=== PATIENT | male | born 1965 | race Two or more races ===

== ENCOUNTER → 2017-04-28 | Outpatient (CLI) | payer OTHER ==
[~2017-04-28] MED LIST: ALLO300 PO; AMLO-512 PO; ASPI81 PO; ATEN-187 PO; COLC0.6T69 PO; FAMO20 PO; LISI-662 PO; NAPR500T6 PO; NITR.4 SL; OMEP20 PO; PARO20TA24 PO; PERCT PO; PRAV10TA39 PO; PREG75 PO; SPIR25 PO
== END | disposition home or self-care (01) ==
LOC: RADPV 14:23
PROVIDERS: ATTEND Internal Medicine Cardiovascular Disease
DX: I51.7 Cardiomegaly (principal); I70.0 Atherosclerosis of aorta; M47.814 Spondylosis without myelopathy or radiculopathy, thoracic region
CPT/HCPCS: 71020

== ENCOUNTER → 2018-11-28 | Outpatient (CLI) | payer OTHER ==
[~2018-11-28] MED LIST changes: +COLC0.6T67 PO; -COLC0.6T69 PO
== END | disposition home or self-care (01) ==
LOC: RADPV 09:31
PROVIDERS: ATTEND Internal Medicine Nephrology
DX: I13.0 Hypertensive heart and chronic kidney disease with heart failure and stage 1 through stage 4 chronic kidney disease, or unspecified chronic kidney disease (principal); N18.3 Chronic kidney disease, stage 3 (moderate); I50.22 Chronic systolic (congestive) heart failure; M72.2 Plantar fascial fibromatosis
CPT/HCPCS: 76770

== ENCOUNTER 2020-11-18 11:46 | Emergency (ER) | payer OTHER ==
[~2020-11-18] VITALS: Ht 180.3 cm; Wt 145.4 kg
[~2020-11-18 11:46] MED LIST changes: +ALLO-45 PO; -ALLO300 PO; +AMLO-258 PO; -AMLO-512 PO; +ASPI-728 PO; -ASPI81 PO; -COLC0.6T67 PO; +COLC0.6T73 PO; -NITR.4 SL; +NITR0.4T52 SL; +PARO-38 PO; -PARO20TA24 PO
[2020-11-18 11:54] VITALS: BP 160/100
[2020-11-18 13:09] LABS: BASOPHILS % (AUTO) 0.9 % (0.0-2.0); EOSINOPHILS % (AUTO) 2.6 % (1.0-6.0); HEMATOCRIT 39.7 % (41-53); HEMOGLOBIN 12.9 g/dL (13.5-17.5); LYMPHOCYTES # (AUTO) 1.4 K/uL (1.0-4.8); LYMPHOCYTES % (AUTO) 20.3 % (22.0-44.0); MEAN CORPUSCULAR HEMOGLOBIN 29.7 pg (26.0-34.0); MEAN CORPUSCULAR HGB CONC 32.5 G/dL (31.0-37.0); MEAN CORPUSCULAR VOLUME 92 fL (80-100); MONOCYTES # (AUTO) 0.4 K/uL (0.1-1.0); NEUTROPHILS # (AUTO) 4.8 K/uL (1.8-7.7); NEUTROPHILS % (AUTO) 70.2 % (40.0-70.0); PLATELET COUNT (AUTO) 266 K/uL (150-450); RED BLOOD CELL COUNT(AUTO) 4.34 MIL/uL (4.50-5.90); RED CELL DISTRIBUTION WIDTH 14.6 % (11.5-14.5)
[2020-11-18 13:17] LABS: CALCIUM, TOTAL 8.4 mg/dL (8.8-10.5); CREATININE 3.41 mg/dL (0.60-1.30); POTASSIUM 5.4 mmol/L (3.5-5.1)
[2020-11-18 13:23] LABS: ALBUMIN 3.6 g/dL (3.4-5.0); BILIRUBIN,TOTAL 0.2 mg/dL (0.1-1.0); TOTAL PROTEIN, SERUM 8.1 g/dL (6.4-8.2)
== END 2020-11-18 13:55 | disposition left against medical advice (07) ==
LOC: EMS 11:50
DX: Z53.21 Procedure and treatment not carried out due to patient leaving prior to being seen by health care provider (principal)
CPT/HCPCS: 93005